=== PATIENT | female | born 1985 | race Caucasian/White ===

== ENCOUNTER → 2016-08-19 | Outpatient (CLI) | payer OTHER ==
[~2016-08-19] MED LIST: ALBU17IN INH; ALPR2TAB3 PO; AMOX875T2 PO; BACITAB3 PO; COLA100C PO; EFFE75CA75 PO; EUCECRE3 TOP; FLAG500T PO; NICO14PA TD; PANT40TA2 PO; TRAZ50TA4 PO; TRAZO50TA PO; VITA100037 PO; bacitracin ointment TOP
[2016-08-19 12:53] LABS: MEAN CORPUSCULAR HEMOGLOBIN 29.6 pg (27.0-33.0); MEAN CORPUSCULAR HGB CONC 33.5 g/dl (32.0-36.5); MEAN CORPUSCULAR VOLUME 88.4 fl (80.0-96.0); RED CELL DISTRIBUTION WIDTH 12.2 % (11.5-14.5); WHITE BLOOD COUNT 5.1 K/mm3 (4.0-10.0)
[2016-08-19 13:27] LABS: ALBUMIN 3.2 GM/DL (3.2-5.2); ALBUMIN/GLOBULIN RATIO 0.89 (1.00-1.93); ALKALINE PHOSPHATASE 83 U/L (45-117); ALT/SGPT 30 U/L (12-78); ANION GAP 8 MEQ/L (8-16); AST/SGOT 23 U/L (15-37); BILIRUBIN,TOTAL 0.4 MG/DL (0.2-1.0); BLOOD UREA NITROGEN 13 MG/DL (7-18); CALCIUM LEVEL 8.4 MG/DL (8.5-10.1); CARBON DIOXIDE LEVEL 28 MEQ/L (21-32); CHLORIDE LEVEL 104 MEQ/L (98-107); CHOLESTEROL LEVEL 173 MG/DL (<200); CREATININE FOR GFR 0.58 MG/DL (0.55-1.02); GLOMERULAR FILTRATION RATE > 60.0 (>60); GLUCOSE, FASTING 87 MG/DL (70-105); POTASSIUM SERUM 4.3 MEQ/L (3.5-5.1); SODIUM LEVEL 140 MEQ/L (136-145); TOTAL PROTEIN 6.8 GM/DL (6.4-8.2); TRIGLYCERIDES LEVEL 105 MG/DL (<150)
== END ==
LOC: M LAB 11:27
PROVIDERS: ATTEND Family Medicine
DX: D64.9 Anemia, unspecified (principal); E03.9 Hypothyroidism, unspecified

== ENCOUNTER → 2017-02-23 | Outpatient (CLI) | payer MEDICAID ==
[~2017-02-23] MED LIST changes: +BACITAB PO; -BACITAB3 PO; -COLA100C PO; +COLA100C5 PO; +TRAZ50TA11 PO; -TRAZ50TA4 PO; -VITA100037 PO; +VITA100067 PO
== END ==
LOC: M OUTALCOH 11:27
PROVIDERS: ATTEND Psychiatry & Neurology Psychiatry
DX: Z03.89 Encounter for observation for other suspected diseases and conditions ruled out (principal)

== ENCOUNTER 2017-03-03 11:00 | Outpatient (RCR) | payer MEDICAID | END 2017-03-11 | LOC: M OUTALCOH 11:00 | PROVIDERS: ATTEND Psychiatry & Neurology Psychiatry | DX: Z03.89 Encounter for observation for other suspected diseases and conditions ruled out (principal); Z72.0 Tobacco use ==

== ENCOUNTER 2018-02-05 20:51 | Emergency (ER) | payer OTHER ==
[2018-02-05] MEDS ORDERED: PERCOCET 5MG/325MG TAB PO (22:15)
[2018-02-05] MEDS: OXYCODONE/APAP 5MG/325MG(BULK FOR ED) 1 TABLET PO (22:49)
== END 2018-02-05 23:04 | disposition home or self-care (01) ==
LOC: M ED 20:51
DX: S62.612A Displaced fracture of proximal phalanx of right middle finger, initial encounter for closed fracture (principal); S62.610A Displaced fracture of proximal phalanx of right index finger, initial encounter for closed fracture; S62.614A Displaced fracture of proximal phalanx of right ring finger, initial encounter for closed fracture; W19.XXXA Unspecified fall, initial encounter; Y92.410 Unspecified street and highway as the place of occurrence of the external cause; Y93.55 Activity, bike riding; Y99.9 Unspecified external cause status; Z72.0 Tobacco use; Z88.5 Allergy status to narcotic agent
CPT/HCPCS: 73130

== ENCOUNTER → 2018-05-02 | Day surgery (SDC) | payer OTHER ==
[~2018-05-02] MED LIST changes: -ALBU17IN INH; -ALPR2TAB3 PO; -AMOX875T2 PO; -BACITAB PO; -COLA100C5 PO; -EFFE75CA75 PO; -EUCECRE3 TOP; -FLAG500T PO; +LIDOCAINE 2% INJ 100 MG/5 ML SYRINGE As Ordered; +MIDAZOLAM INJ 2 MG/2 ML VIAL (J2250) As Ordered; -NICO14PA TD; +ONDANSETRON 4MG/2ML VIAL (J2405) As Ordered; -PANT40TA2 PO; +PROPOFOL 200 MG/20 ML VIAL As Ordered; +ROCURONIUM BROMIDE 50 MG/5 ML VIAL As Ordered; -TRAZ50TA11 PO; -TRAZO50TA PO; -VITA100067 PO; -bacitracin ointment TOP; +dexameTHASONE 4 MG/ML 1ML VIAL (J1100) As Ordered; +fentaNYL 100 MCG/2 ML INJECTION (J3010) As Ordered
[2018-05-02 08:01] LABS: CONTROL LINE UCG INT CTR LINE PRESENT; URINE PREG TEST NEGATIVE (NEGATIVE)
== END | disposition home or self-care (01) ==
LOC: M SDC 07:13
DX: J35.01 Chronic tonsillitis (principal); Z53.09 Procedure and treatment not carried out because of other contraindication
CPT/HCPCS: 84703

== ENCOUNTER 2018-05-11 11:01 | Day surgery (SDC) | payer OTHER ==
[2018-05-11] MEDS ORDERED: NEOSTIGMINE 10 MG/10 ML VIAL (J2710) As Ordered (11:44)
[2018-05-11] MEDS ORDERED: ONDANSETRON 4MG/2ML VIAL (J2405) As Ordered (11:44)
[2018-05-11] MEDS ORDERED: PROPOFOL 200 MG/20 ML VIAL As Ordered (11:44)
[2018-05-11] MEDS ORDERED: LIDOCAINE 2% INJ 100 MG/5 ML SDV (FOR ANES.) As Ordered (11:44)
[2018-05-11] MEDS ORDERED: dexameTHASONE 4 MG/ML 1ML VIAL (J1100) As Ordered (11:44)
[2018-05-11] MEDS ORDERED: ROCURONIUM BROMIDE 50 MG/5 ML VIAL As Ordered (11:44)
[2018-05-11] MEDS ORDERED: GLYCOPYRROLATE INJ 0.2 MG/ML 2 ML VIAL As Ordered (11:44)
[2018-05-11 11:45] LABS: CONTROL LINE UCG INT CTR LINE PRESENT; URINE PREG TEST NEGATIVE (NEGATIVE)
[2018-05-11] MEDS ORDERED: fentaNYL 100 MCG/2 ML INJECTION (J3010) As Ordered ×3 (11:45→13:56)
[2018-05-11] MEDS ORDERED: MIDAZOLAM INJ 2 MG/2 ML VIAL (J2250) As Ordered ×2 (11:45→12:36)
[2018-05-11] MEDS: LIDOCAINE 1% MDV 20ML VIAL As Ordered (13:21)
[2018-05-11] MEDS: BUPIVACAINE HCL 0.25% 30 ML VIAL As Ordered (13:22)
[2018-05-11] MEDS ORDERED: PERCOCET 5MG/325MG TAB As Ordered (13:56)
[2018-05-11] MEDS ORDERED: METOCLOPRAMIDE INJ 10MG/2ML VIAL (J2765) IV (14:00)
[2018-05-11] MEDS: fentaNYL 100 MCG/2 ML INJECTION (J3010) IV ×4 (14:00→14:20)
[2018-05-11] MEDS: PERCOCET 5MG/325MG TAB PO ×2 (14:00→14:27)
[2018-05-11] MEDS ORDERED: LR 1,000 ML IV (14:00)
[2018-05-11] MEDS ORDERED: HYDROcodone/APAP LIQUID 7.5-325MG 15ML UDC (LORTAB ELIXIR) PO (14:00)
[2018-05-11] MEDS: ONDANSETRON 4MG/2ML VIAL (J2405) IV (14:00)
== END 2018-05-11 15:35 | disposition home or self-care (01) ==
LOC: M SDC 11:01
DX: J35.01 Chronic tonsillitis (principal); G47.30 Sleep apnea, unspecified; J45.909 Unspecified asthma, uncomplicated; F41.9 Anxiety disorder, unspecified; F17.210 Nicotine dependence, cigarettes, uncomplicated; E66.9 Obesity, unspecified; Z79.899 Other long term (current) drug therapy
CPT/HCPCS: 42826

== ENCOUNTER 2018-07-09 15:10 | Emergency (ER) | payer OTHER ==
[~2018-07-09] VITALS: Ht 162.6 cm; Wt 95.5 kg
[~2018-07-09 15:10] MED LIST changes: +ALBU17IN INH; +ALPR1TAB3 PO; +ALPR2TAB3 PO; +AMOX875T2 PO; +BACITAB PO; +COLA100C5 PO; +EFFE75CA2 PO; +EUCECRE3 TOP; +FLAG500T PO; -LIDOCAINE 2% INJ 100 MG/5 ML SYRINGE As Ordered; -MIDAZOLAM INJ 2 MG/2 ML VIAL (J2250) As Ordered; +NICO14PA TD; -ONDANSETRON 4MG/2ML VIAL (J2405) As Ordered; +PANT40TA3 PO; -PROPOFOL 200 MG/20 ML VIAL As Ordered; -ROCURONIUM BROMIDE 50 MG/5 ML VIAL As Ordered; +TRAZ-160 PO; +TRAZO50TA PO; +VITA100067 PO; +bacitracin ointment TOP; -dexameTHASONE 4 MG/ML 1ML VIAL (J1100) As Ordered; -fentaNYL 100 MCG/2 ML INJECTION (J3010) As Ordered
[2018-07-09] MEDS ORDERED: ACETAMINOPHEN 325 MG TAB PO ONE (17:45)
[2018-07-09] MEDS ORDERED: predniSONE 20 MG TAB PO ONE (17:45)
[2018-07-09 18:07] LABS: BASO % 0.5 % (0.0-1.0); EOS % 0.2 % (0.0-3.0); HEMATOCRIT 45.6 % (36.0-47.0); HEMOGLOBIN 15.4 g/dl (12.0-15.5); LYMPH # 1.4 10^3/uL (1.5-4.5); LYMPH % 20.4 % (24.0-44.0); MEAN CORPUSCULAR HEMOGLOBIN 29.7 pg (27.0-33.0); MEAN CORPUSCULAR HGB CONC 33.8 g/dl (32.0-36.5); MONO # 0.4 10^3/uL (0.0-0.8); MONO % 5.6 % (0.0-5.0); NEUTROPHILS # 4.8 10^3/uL (1.8-7.7); PLATELET COUNT, AUTOMATED 193 10^3/uL (150-450); RED BLOOD COUNT 5.18 10^6/uL (4.00-5.40); WHITE BLOOD COUNT 6.6 10^3/uL (4.0-10.0)
[2018-07-09] MEDS: IPRATROPIUM 0.5MG/ALBUTEROL 2.5MG INH SOL UD 3ML (DUONEB)(J7620) NEB PRN ×2 (18:28→18:42)
[2018-07-09 18:32] LABS: HCG, SERUM QUALITATIVE NEGATIVE (NEGATIVE)
[2018-07-09 19:27] VITALS: BP 123/83
[2018-07-09] MEDS ORDERED: PRED20TA PO (20:13)
[2018-07-09] MEDS ORDERED: ADVA115A INH (20:13)
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
--- NOTE | 2018-07-10 21:13 | ECGEPIP ---
Stationary ECG Study [facility] - ED Test Date: 2018-07-09 Pat Name: CHRIS ROSARIO Department: Room: - Gender: F Worsted Winder: anton : 1985 Requested By: JEFFREY Wagner PA-C Order Number: [id number] Reading MD: Guevara Núñez Measurements Intervals [place] Rate: 53 P: 39 [place]: 172 QRS: 30 QRSD: 98 T: 18 QT: 461 QTc: 435 Interpretive Statements SINUS BRADYCARDIA WITH SINUS ARRHYTHMIA RHYTHM/RATE CHANGE COMPARED TO 12/13/15 Electronically Signed On 07-10-2018 21:13:18 EST by Guevara Núñez
== END 2018-07-09 20:19 | disposition home or self-care (01) ==
LOC: M ED 15:10
DX: R06.00 Dyspnea, unspecified (principal); R00.2 Palpitations; R00.1 Bradycardia, unspecified; J45.909 Unspecified asthma, uncomplicated; Z72.0 Tobacco use; Z79.899 Other long term (current) drug therapy; Z88.5 Allergy status to narcotic agent

== ENCOUNTER 2018-07-21 14:19 | Inpatient (IN) | payer MEDICAID, OTHER ==
[~2018-07-21] VITALS: Ht 162.6 cm; Wt 97.2 kg
[~2018-07-21 14:19] MED LIST changes: +ADVA115A INH; +PRED20TA PO
[2018-07-21] MEDS ORDERED: NS 1,000 ML IV ONE (14:30)
[2018-07-21 15:07] LABS: VENOUS BASE EXCESS -0.5 (-2.0-2.0); VENOUS O2 SATURATION 96.5 % (60.0-80.0); VENOUS PARTIAL PRESSURE CO2 39.4 mmHg (38.0-50.0); VENOUS PH 7.403 UNITS (7.330-7.430); VENOUS TOTAL CO2 25.2 MEQ/L (24.0-28.0)
[2018-07-21 15:13] LABS: BASO # 0.1 10^3/uL (0.0-0.2); BASO % 0.6 % (0.0-1.0); EOS % 0.4 % (0.0-3.0); HEMATOCRIT 46.7 % (36.0-47.0); HEMOGLOBIN 15.9 g/dl (12.0-15.5); LYMPH # 1.9 10^3/uL (1.5-4.5); LYMPH % 22.8 % (24.0-44.0); MEAN CORPUSCULAR VOLUME 88.1 fl (80.0-96.0); MONO # 0.5 10^3/uL (0.0-0.8); NEUTROPHILS # 5.8 10^3/uL (1.8-7.7); PLATELET COUNT, AUTOMATED 192 10^3/uL (150-450); WHITE BLOOD COUNT 8.3 10^3/uL (4.0-10.0)
[2018-07-21 15:34] LABS: HCG, SERUM QUALITATIVE NEGATIVE (NEGATIVE)
[2018-07-21 15:43] LABS: ACETAMINOPHEN LEVEL < 2.0 UG/ML (10.0-30.0); ALBUMIN 3.8 GM/DL (3.2-5.2); ALT/SGPT 55 U/L (12-78); BILIRUBIN,DIRECT 0.3 MG/DL (0.0-0.2); BILIRUBIN,TOTAL 1.1 MG/DL (0.2-1.0); BLOOD UREA NITROGEN 11 MG/DL (7-18); CALCIUM LEVEL 8.5 MG/DL (8.5-10.1); CARBON DIOXIDE LEVEL 24 MEQ/L (21-32); CHLORIDE LEVEL 106 MEQ/L (98-107); CPK CREATINE PHOSPHOKINASE 67 U/L (26-192); CREATININE FOR GFR 0.65 MG/DL (0.55-1.30); ETHYL ALCOHOL (ETHANOL) < 0.003 % (0.000-0.010); GLOMERULAR FILTRATION RATE > 60.0 (>60); GLUCOSE, FASTING 94 MG/DL (70-100); POTASSIUM SERUM 4.2 MEQ/L (3.5-5.1); SALICYLATE LEVEL < 1.7 MG/DL (5.0-30.0); SODIUM LEVEL 138 MEQ/L (136-145); TOTAL PROTEIN 7.3 GM/DL (6.4-8.2)
[2018-07-21 15:46] LABS: AMPHETAMINES LEVEL URINE NEGATIVE (NEGATIVE); BARBITURATES URINE NEGATIVE (NEGATIVE); BENZODIAZEPINES URINE POSITIVE (NEGATIVE); CANNABINOIDS URINE POSITIVE (NEGATIVE); COCAINE METABOLITE URINE NEGATIVE (NEGATIVE); METHADONE URINE NEGATIVE (NEGATIVE); OPIATES URINE NEGATIVE (NEGATIVE); PHENCYCLIDINE URINE NEGATIVE (NEGATIVE)
[2018-07-21 15:53] LABS: OSMOLALITY SERUM 292 MOSM/KG (275-295)
--- NOTE | 2018-07-21 19:36 | ECGEPIP ---
Stationary ECG Study [facility] - ED Test Date: 2018-07-21 Pat Name: CHRIS ROSARIO Department: Room: - Gender: F Silk Soaker: TRISHA : 1985 Requested By: PEGGY Cleary Order Number: [id number] Reading MD: Frandy Alves Measurements Intervals [place] Rate: 70 P: 58 [place]: 160 QRS: 45 QRSD: 88 T: 38 QT: 358 QTc: 387 Interpretive Statements SINUS RHYTHM WITH MARKED SINUS ARRHYTHMIA NONSPECIFIC ST T WAVE CHANGES CW 07/09/18 RATE INCREASED Electronically Signed On 07-21-2018 19:36:01 EST by Frandy Alves
[2018-07-21] MEDS ORDERED: traZODone 50 MG TAB PO PRN (21:00)
[2018-07-21] MEDS ORDERED: ALBUTEROL 90 MCG/ACT 8GM HFA INHALER INH PRN (21:00)
[2018-07-21] MEDS ORDERED: ACETAMINOPHEN TAB 650MG DOSE (2X325MG) PO PRN (21:00)
[2018-07-21] MEDS ORDERED: MOM 30ML SUSPENSION UDC PO PRN (21:00)
[2018-07-21] MEDS ORDERED: MAALOX 30 ML SUSP *UDC PO PRN (21:00)
[2018-07-21] MEDS ORDERED: VENTAER INH (21:37)
[2018-07-21] MEDS ORDERED: VITA1CAP25 PO (21:38)
[2018-07-21 22:36] VITALS: BP 115/78
[2018-07-21] MEDS: ALPRAZolam 0.5 MG TAB PO PRN (23:29)
[2018-07-21] MEDS: ADVAIR HFA 115/21MCG INHALER INH SCH (23:31)
[2018-07-22 06:00] VITALS: BP 116/55
[2018-07-22] MEDS: ADVAIR HFA 115/21MCG INHALER INH SCH ×2 (08:24→20:46)
[2018-07-22] MEDS: ALPRAZolam 0.5 MG TAB PO PRN ×3 (08:25→23:14)
--- NOTE | 2018-07-22 09:01 | REP ---
CHEST, SINGLE VIEW: There is no evidence of acute infiltrate. No pleural effusion is seen. The heart is normal in size. The mediastinal silhouette is unremarkable. The visualized osseous structures are intact. IMPRESSION: No acute pulmonary disease. Electronically Signed by Steffen Antonio MD 07/22/2018 06:46 P
[2018-07-22 18:00] VITALS: BP 120/82
[2018-07-23 06:48] VITALS: BP 108/58
[2018-07-23] MEDS: ALPRAZolam 0.5 MG TAB PO PRN (08:16)
[2018-07-23] MEDS: ADVAIR HFA 115/21MCG INHALER INH SCH (08:16)
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
[2018-07-23 11:57] VITALS: BP 111/57
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
--- NOTE | 2018-07-24 10:05 | HPE ---
DATE OF ADMISSION: 07/21/2018 PRIMARY CARE PROVIDER: Dr. Jacky Green HISTORY OF PRESENT ILLNESS: Please refer to psychiatric history and evaluation for further details on this admission. This examination and history is intended for medical issues, which may need treatment, followup or consultation on this 32-year-old female. ALLERGIES: CODEINE. SOCIAL HISTORY: She is . ETOH: She drank excessively for years in her teens. ETOH currently none. She smokes approximately two cigarettes per day. Recreational drug use: Marijuana. PAST MEDICAL HISTORY: 1. Anxiety. 2. History of asthma and environmental allergies. 3. History of vitamin D deficiency. PAST SURGICAL HISTORY: Tonsillectomy. LABORATORY STUDIES: WBC 8.3, hemoglobin 15.9, hematocrit 46.7, platelets 192. Electrolytes are normal. Bilirubin 1.1, direct bilirubin 0.39. BUN 11, creatinine 0.65. Urine was positive for benzodiazepines, positive for cannabinoids. HOME MEDICATIONS: - albuterol two puffs, every 4-6 hours as needed for shortness of breath or wheeze - alprazolam 1 mg by mouth four times a day - vitamin D 50,000 units once a week Chest x-ray showed no acute pulmonary disease. EKG shows sinus rhythm with sinus arrhythmia. REVIEW OF SYSTEMS: 10-systems review was done and was unremarkable. The patient had no specific complaints. PHYSICAL EXAMINATION: GENERAL: 32-year-old cooperative female in no acute distress. VITAL SIGNS: Height 64 inches, weight 97 kilograms, body mass index (BMI) 36.7 kg. The patient is awake, alert and oriented times three. GENERAL: The patient is awake, alert and oriented times three. HEENT: Pupils equal, round, reactive to light. Extraocular muscles intact. Cornea and sclerae clear. Conjunctiva is normal. No facial asymmetry. Pharynx, tongue and gum is pink and moist. Tongue is midline. NECK: Neck is supple without lymphadenopathy. No thyromegaly. No goiter. Carotids 2+ without bruit. CHEST: Clear to auscultation without wheeze or retraction. HEART: Heart is regular. ABDOMEN: Benign. Bowel sounds positive. GENITOURINARY ()/RECTAL: Not done. EXTREMITIES: Equal strength with full range of motion. No clubbing, cyanosis, or edema. Peripheral pulses are equal and palpable bilaterally. SKIN: Warm and dry. IMPRESSION AND PLAN: 1. Psychiatric plan per psychiatry. 2. No acute medical issues.
== END 2018-07-23 14:25 | disposition home or self-care (01) | DRG 756 ==
LOC: M ED 14:19 → EDBD 14:19 → M ED INP 20:48 → M PSY 22:24
PROVIDERS: ADMIT Psychiatry & Neurology Psychiatry; ATTEND Psychiatry & Neurology Psychiatry
DX: F41.9 Anxiety disorder, unspecified (principal); E55.9 Vitamin D deficiency, unspecified; J45.909 Unspecified asthma, uncomplicated; F17.210 Nicotine dependence, cigarettes, uncomplicated; F13.10 Sedative, hypnotic or anxiolytic abuse, uncomplicated; Z79.899 Other long term (current) drug therapy

== ENCOUNTER → 2020-01-06 | Day surgery (SDC) | payer MEDICAID ==
[~2020-01-06] MED LIST changes: +ALBU8.5H; +AMOX500C; +LIDOCAINE 2% 100MG/5ML SDV (FOR ANES.) ONE; +MIDAZOLAM INJ 2MG/2ML VIAL (J2250 PER 1MG) ONE; +OXYMETAZOLINE 0.05% NASAL SPRAY (AFRIN) ONE; +QUET100T2; +TIZA4TAB4; -TRAZ-160 PO; +TRAZ-252 PO; +TRAZ1TAB10 PO; -TRAZO50TA PO; +TRIA37.53; +VENTAER INH; +VITA1CAP25 PO; +fentaNYL 100 MCG/2 ML INJECTION (J3010) ONE; +propofoL 200 MG/20 ML VIAL ONE
== END | disposition home or self-care (01) ==
LOC: M SDC 11:42
PROVIDERS: ATTEND Specialist
DX: S02.2XXA Fracture of nasal bones, initial encounter for closed fracture (principal); X58.XXXA Exposure to other specified factors, initial encounter; Y92.89 Other specified places as the place of occurrence of the external cause; Y93.9 Activity, unspecified; Y99.9 Unspecified external cause status; I10 Essential (primary) hypertension; J45.909 Unspecified asthma, uncomplicated; Z79.51 Long term (current) use of inhaled steroids; Z79.899 Other long term (current) drug therapy; F17.218 Nicotine dependence, cigarettes, with other nicotine-induced disorders; F41.9 Anxiety disorder, unspecified
CPT/HCPCS: 21320; J2250; J3010

== ENCOUNTER → 2020-02-24 | Outpatient (CLI) | payer OTHER ==
[~2020-02-24] MED LIST changes: -LIDOCAINE 2% 100MG/5ML SDV (FOR ANES.) ONE; -MIDAZOLAM INJ 2MG/2ML VIAL (J2250 PER 1MG) ONE; -OXYMETAZOLINE 0.05% NASAL SPRAY (AFRIN) ONE; +PANT40TA29 PO; -PANT40TA3 PO; -fentaNYL 100 MCG/2 ML INJECTION (J3010) ONE; -propofoL 200 MG/20 ML VIAL ONE
--- NOTE | 2020-03-13 09:24 | REP ---
DIGITAL DIAGNOSTIC UNILATERAL RIGHT BREAST MAMMOGRAPHY WITH CAD AND FOCUSED RIGHT BREAST SONOGRAPHY HISTORY: Right breast mass 7 to 8 o'clock position, 7 cm from the areola. FINDINGS: No comparison mammography. A skin marker is affixed to the skin at the site of the palpable lump. Craniocaudal, MLO, and mediolateral views are obtained. These demonstrate a well-circumscribed lobulated soft tissue density at the site of the palpable lump posteriorly right breast inferolateral quadrant. This measures 2.6 cm in greatest diameter. Background parenchymal density pattern is heterogeneously dense in a pattern, which may inhibit the sensitivity of mammography. The [facility] breast parenchymal density pattern is C. No other mammographic abnormality is seen. SONOGRAPHIC FINDINGS: The right breast is scanned at the area of the palpable lump in the 7 o'clock position 9 cm from the nipple. A hypoechoic area is seen with well-circumscribed margins. It measures 2.0 x 1.2 x 1.7 cm and is felt to correspond with the mammographic opacity. There is internal blood flow within the lesion. It is nonspecific, but most compatible with fibroadenoma. IMPRESSION: BI-RADS Category 4 suspicious right breast imaging. Solid hypoechoic lesion at the site of the palpable lump consistent with, but no specific for fibroadenoma. Ultrasound-guided needle biopsy and marker clip placement recommended with post- clip placement mammography. 3M patient letter M4 dense. The patients Tyrer-Cuzick lifetime breast cancer risk assessment is 14.8%. MTDD
== END ==
LOC: M WHC 10:10
PROVIDERS: ATTEND Nurse Practitioner Family
DX: N63.14 Unspecified lump in the right breast, lower inner quadrant (principal); N60.01 Solitary cyst of right breast
CPT/HCPCS: 76642; 77065; G0279

== ENCOUNTER → 2020-03-10 | Outpatient (CLI) | payer MEDICAID ==
[2020-03-10 15:02] LABS: FREE T4 0.98 NG/DL (0.76-1.46); PROLACTIN 7.4 NG/ML; THYROID STIMULATING HORMONE 2.32 uIU/ML (0.358-3.740)
== END ==
LOC: M PLALAB 11:41
PROVIDERS: ATTEND Surgery
DX: N64.52 Nipple discharge (principal)

== ENCOUNTER → 2020-03-18 | Outpatient (CLI) | payer OTHER ==
--- NOTE | 2020-03-18 11:09 | ROOPDOC ---
[facility] Report Of Operation Report of Operation DATE OF PROCEDURE: 03/18/20 DIAGNOSIS: Right breast mass PROCEDURE: Ultrasound-guided right breast mass biopsy with clip placement and post biopsy right breast mammogram SURGEON: Hiram Lopez BLOOD LOSS: minimal COMPLICATIONS: none FINDINGS: clip is seen inside of the right breast mammographic mass Lidocaine 1% LOT [id number] Expiration 01/2023 Sodium Bicarbonate 8.4% LOT [id number] Expiration 02/2021 Hydromark clip LOT [id number] Expiration 10/2022 Bx device: BARD [id number] x10 cm LOT [id number] Expiration 10/2022 Informed consent was obtained. The most common risk and possible complications including bleeding, hematoma, bruising, infection, injury to surrounding structures were explained to the patient and the patient expressed understanding. Patient was placed on the bed in the supine position. Appropriate time out was done stating patients name, date of , and the procedure to be performed. The right breast was prepped and draped in the usual fashion. The ultrasound was used to confirm the location of the lesion in the right breast at 7-8:00 9 centimeters from the nipple. Plain Lidocaine 1% and 8.4% sodium bicarbonate 10:1 mix was used to anesthetize the skin, the biopsy site and tissues along the anticipated biopsy tract. Small skin incision was made with blade number 11. BARD Marquee 14G cannula with introducer ([id number]) was inserted through the incision and advanced under the ultrasound guidance to position immediately adjacent to the lesion. Next, the introducer was removed and BARD Marquee 14G biopsy device was places in the cannula. Pre-biopsy imaging, and post-biopsy imaging were captured. Five good core biopsies were taken at various levels of the lesion. Specimen was placed in formaldehyde, labeled with appropriate biopsy site and patients name, and sent to pathology for evaluation. Next, the biopsy device was withdrawn and a clip introducer was inserted into the biopsy site via the cannula. The SHAPE 4 Hydromark clip was deployed under sonographic guidance. Post-clip placement image was captured. Manual pressure over the biopsy cavity and tract was held after the clip introducer was withdrawn. No bleeding was noted upon removal of the pressure. Post-biopsy mammogram of the right breast was obtained and showed clip in expected position. Postprocedural dressing was placed. Patient tolerated procedure well. Discharge instructions were discussed with the patient and the patient expressed understanding. HIRAM LOPEZ DO Mar 18, 2020 11:09
[2020-03-18 16:56] VITALS: BP 120/68
--- NOTE | 2020-03-23 10:57 | REP ---
RIGHT BREAST ULTRASOUND HISTORY: Nipple discharge. TECHNIQUE: Real-time sonographic evaluation of the right retroareolar region performed. FINDINGS: In the retroareolar region, there is a superficial hypoechoic area, which measures 4 x 6 x 6 mm with distal acoustic shadowing. No dilated ducts are seen. No other cystic or solid nodule is seen. IMPRESSION: Right retroareolar shadowing nodular area, which is hypoechoic measuring 4 x 6 x 6 mm. Recommend ultrasound-guided biopsy. ACR 4 suspicious. MTDD
--- NOTE | 2020-03-23 10:57 | REP ---
ULTRASOUND GUIDANCE FOR RIGHT BREAST BIOPSY Ultrasound guidance was provided for Dr. Ramirez, who performed ultrasound- guided biopsy of an oval hypoechoic nodule at the 7 o'clock position of the right breast, as seen on prior ultrasound of 02/24/2020. The biopsy needle is seen within the hypoechoic nodule at 7 o'clock. The final image shows a biopsy clip within the nodule. [facility]
--- NOTE | 2020-03-23 10:59 | REP ---
POST BIOPSY MAMMOGRAM RIGHT BREAST TECHNIQUE: Following ultrasound-guided biopsy of a nodule at the 7 o'clock position of the right breast, MLO and CC views of the right breast are obtained. FINDINGS: A biopsy clip is seen within the nodule posteriorly, as identified on the prior mammogram of 02/24/2020. ASHLEIGH
== END ==
LOC: M WHCPRO 08:10
PROVIDERS: ATTEND Surgery
DX: D24.1 Benign neoplasm of right breast (principal); N60.21 Fibroadenosis of right breast

== ENCOUNTER → 2020-05-08 | Outpatient (CLI) | payer OTHER ==
[2020-05-08 12:14] LABS: HEMOGLOBIN 14.4 g/dl (12.0-15.5); MEAN CORPUSCULAR HEMOGLOBIN 29.5 pg (27.0-33.0); MEAN CORPUSCULAR HGB CONC 32.7 g/dl (32.0-36.5); MEAN CORPUSCULAR VOLUME 90.2 fl (80.0-96.0); PLATELET COUNT, AUTOMATED 189 10^3/uL (150-450); RED BLOOD COUNT 4.88 10^6/uL (4.00-5.40); WHITE BLOOD COUNT 5.8 10^3/uL (4.0-10.0)
[2020-05-08 12:29] LABS: INR 0.94; PROTHROMBIN TIME 12.8 SECONDS (12.5-14.3)
[2020-05-08 12:50] LABS: ALBUMIN 3.3 GM/DL (3.2-5.2); ALT/SGPT 42 U/L (12-78); BILIRUBIN,TOTAL 0.6 MG/DL (0.2-1.0); BLOOD UREA NITROGEN 12 MG/DL (7-18); CARBON DIOXIDE LEVEL 30 MEQ/L (21-32); CHLORIDE LEVEL 105 MEQ/L (98-107); CHOLESTEROL LEVEL 161 MG/DL (<200); CHOLESTEROL RISK RATIO 2.683 (<5); CREATININE FOR GFR 0.74 MG/DL (0.55-1.30); GLOMERULAR FILTRATION RATE > 60.0 (>60); GLUCOSE, FASTING 83 MG/DL (70-100); HDL CHOLESTEROL 60 MG/DL (>40); LDL CHOLESTEROL 88 MG/DL (<100); NON-HDL-C 101 MG/DL; POTASSIUM SERUM 4.3 MEQ/L (3.5-5.1); SODIUM LEVEL 140 MEQ/L (136-145); TOTAL PROTEIN 6.4 GM/DL (6.4-8.2); TRIGLYCERIDES LEVEL 65 MG/DL (<150)
[2020-05-08 13:30] LABS: HEMOGLOBIN A1c 4.9 %
== END ==
LOC: M LAB 11:46
PROVIDERS: ATTEND Family Medicine
DX: Z01.818 Encounter for other preprocedural examination (principal); I10 Essential (primary) hypertension

== ENCOUNTER → 2020-05-13 | Outpatient (CLI) | payer OTHER ==
[~2020-05-13] MED LIST changes: +LISI10TA4 PO
--- NOTE | 2020-05-13 08:29 | REP ---
INDICATION: HTN- EKG 1ST. COMPARISON: Comparison chest x-ray July 21, 2018. TECHNIQUE: Two views.. FINDINGS: The lungs are well inflated and free of infiltrate. The pleural angles are sharp. The heart size is normal. Pulmonary vasculature is not increased. No significant bony abnormality is seen. IMPRESSION: No active disease.. <Electronically signed by En Espinal > 05/13/20 [id number]
--- NOTE | 2020-05-13 08:33 | ECGEPIP ---
[facility] Test Date: 2020-05-13 Pat Name: CHRIS ROSARIO Department: Room: - Gender: Female Strip Roller: TERESA : 1985 Requested By: Fran Rico Order Number: [id number] Reading MD: Sunita Tony Measurements Intervals [place] Rate: 51 P: 41 HI: 169 QRS: 45 QRSD: 95 T: 40 QT: 411 QTc: 379 Interpretive Statements SINUS BRADYCARDIA RATE SLOWER C/W 07/21/18 Electronically Signed on 05-13-2020 8:33:13 EST by Sunita Tony
== END ==
LOC: M EKG 08:02
PROVIDERS: ATTEND Family Medicine
DX: Z01.818 Encounter for other preprocedural examination (principal); I10 Essential (primary) hypertension; R00.1 Bradycardia, unspecified

== ENCOUNTER → 2020-05-21 | Outpatient (CLI) | payer OTHER | LOC: M LABSMTC 10:18 | PROVIDERS: ATTEND Anesthesiology | DX: Z01.812 Encounter for preprocedural laboratory examination (principal); Z20.828 Contact with and (suspected) exposure to other viral communicable diseases ==

== ENCOUNTER → 2020-12-01 | Outpatient (CLI) | payer OTHER ==
[~2020-12-01] MED LIST changes: +KETO10TAB PO; +LISI10TA22 PO; -LISI10TA4 PO
--- NOTE | 2020-12-01 15:58 | REP ---
INDICATION: DIAG LEFT BREAST/LEFT BREAST MASS; LEFT BREAST MASS. The patient reports a tender large, fist size area of palpable abnormality in the upper-outer quadrant of the left breast. COMPARISON: No comparison left breast imaging. TECHNIQUE: A skin marker is affixed to the skin denoting the area of the palpable abnormality. MLO, cc, and true mediolateral views are obtained. 3D tomography is utilized. Targeted left breast sonography is performed. . FINDINGS: Breast parenchyma is heterogeneously dense in a pattern which may inhibit the sensitivity of mammography. No dominant density is seen in the upper-outer quadrant of the left breast in the region of the skin marker or elsewhere in the left breast. No mass, architectural distortion, or microcalcification is seen. No worrisome skin changes noted. The [place] volumetric breast density pattern is C. Targeted ultrasound: Targeted left breast upper outer quadrant sonography is performed. Heterogeneous fibroglandular background echotexture is seen. Scanning is performed from 2 o'clock 4 o'clock. No cyst, mass or acoustic shadowing is seen. No suspicious sonographic features. IMPRESSION: BIRADS/ACR category 1 negative left breast mammographic and sonographic findings. This patient's Tyrer-Cuzick lifetime breast cancer risk assessment score is 14.7%. RECOMMENDATION: Clinical follow-up is advised regarding patient's breast symptoms.. The patient letter being requested is M2 dense. <Electronically signed by En Espinal > 12/01/20 [id number]
== END ==
LOC: M WHC 12:44
PROVIDERS: ATTEND Family Medicine
DX: N63.20 Unspecified lump in the left breast, unspecified quadrant (principal)
CPT/HCPCS: 76642; 77065; G0279

== ENCOUNTER → 2022-02-22 | Outpatient (CLI) | payer OTHER ==
[~2022-02-22] MED LIST changes: +TIZA10TA; -TIZA4TAB4; -TRIA37.53; +TRIA37.577
== END ==
LOC: M RAD 08:39
PROVIDERS: ATTEND Family Medicine
DX: N83.201 Unspecified ovarian cyst, right side (principal)

== ENCOUNTER → 2022-06-23 | Outpatient (REF) | payer OTHER | LOC: M LAB REF 10:32 | PROVIDERS: ATTEND Family Medicine Addiction Medicine | DX: M54.50 Low back pain, unspecified (principal) ==

== ENCOUNTER → 2022-08-18 | Outpatient (CLI) | payer OTHER | LOC: M RAD 15:46 | PROVIDERS: ATTEND Family Medicine Addiction Medicine | DX: M43.17 Spondylolisthesis, lumbosacral region (principal) ==

== ENCOUNTER → 2022-11-15 | Outpatient (REF) | payer OTHER | LOC: M SFHCWAGY 13:11 | PROVIDERS: ATTEND Nurse Practitioner Family | DX: N94.10 Unspecified dyspareunia (principal); N73.9 Female pelvic inflammatory disease, unspecified; R10.2 Pelvic and perineal pain ==

== ENCOUNTER → 2022-12-15 | Outpatient (CLI) | payer OTHER | LOC: M RAD 10:34 | PROVIDERS: ATTEND Nurse Practitioner Family | DX: N94.10 Unspecified dyspareunia (principal); R10.2 Pelvic and perineal pain ==

== ENCOUNTER → 2023-05-09 | Outpatient (CLI) | payer OTHER ==
[2023-05-09 14:11] LABS: FOLLICLE STIMULATING HORMONE 6.7 mIU/ML
[2023-05-09 14:12] LABS: ESTRADIOL 118.1 PG/ML; LUTEINIZING HORMONE 9.2 mIU/ML; PROGESTERONE 16.24 NG/ML; PROLACTIN 9.15 NG/ML
[2023-05-09 15:33] LABS: CHLAMYDIA DNA AMPLIFICATION NEGATIVE (NEGATIVE); GC DNA AMPLIFICATION NEGATIVE (NEGATIVE)
[2023-05-10 12:07] LABS: TESTOSTERONE FREE (DIRECT) 0.5 pg/mL (0.0-4.2)
== END ==
LOC: M PLALAB 10:11
PROVIDERS: ATTEND Nurse Practitioner Family
DX: Z12.4 Encounter for screening for malignant neoplasm of cervix (principal)

== ENCOUNTER → 2023-11-21 | Outpatient (CLI) | payer OTHER | LOC: M RAD 15:15 | PROVIDERS: ATTEND Family Medicine Addiction Medicine | DX: M54.50 Low back pain, unspecified (principal) ==

== ENCOUNTER 2024-05-12 09:21 | Emergency (ER) | payer OTHER ==
[~2024-05-12] VITALS: Ht 162.6 cm; Wt 66.0 kg
[2024-05-12 09:24] VITALS: BP 112/56; TEMP 98.3; O2SAT 99
[2024-05-12] MEDS: ONDANSETRON 4MG ORAL DISINTEGRATING TAB PO ONE (10:45)
[2024-05-12] MEDS: ACETAMINOPHEN 325 MG TAB PO ONE (10:46)
[2024-05-12] MEDS ORDERED: ONDA-282 PO (11:37)
== END 2024-05-12 11:53 | disposition home or self-care (01) ==
LOC: M ED 09:21
DX: S03.43XA Sprain of jaw, bilateral, initial encounter (principal); Y04.8XXA Assault by other bodily force, initial encounter; Y92.019 Unspecified place in single-family (private) house as the place of occurrence of the external cause; Y93.9 Activity, unspecified; Y99.9 Unspecified external cause status; F41.9 Anxiety disorder, unspecified; F17.210 Nicotine dependence, cigarettes, uncomplicated; Z88.5 Allergy status to narcotic agent; Z79.2 Long term (current) use of antibiotics; Z79.51 Long term (current) use of inhaled steroids; Z79.899 Other long term (current) drug therapy

== ENCOUNTER → 2025-04-21 | Outpatient (CLI) | payer OTHER ==
[~2025-04-21] MED LIST changes: +ONDA-282 PO
== END ==
LOC: M WHC 13:02
PROVIDERS: ATTEND Physician Assistant Medical
DX: N63.21 Unspecified lump in the left breast, upper outer quadrant (principal); R92.30 Dense breasts, unspecified; R59.0 Localized enlarged lymph nodes; R92.322 Mammographic fibroglandular density, left breast